=== PATIENT | female | born 1970 | race Caucasian/White ===

== ENCOUNTER 2020-09-24 07:30 | Outpatient (REF) | payer OTHER, SELFPAY ==
--- NOTE | ~2020-09-24 | MM_ITS ---
EXAMINATION: MM SCREENING DIGITAL BREAST TOMOSYNTHESIS, BILATERAL CLINICAL INFORMATION: Screening. Asymptomatic. The lifetime risk of breast cancer based on the Tyrer-Cuzick Model is 5%. COMPARISON: Mammography: 12/22/2018, 07/06/2017, 05/06/2016 TECHNIQUE: Digital breast tomosynthesis is performed in both the craniocaudal and mediolateral oblique views along with computer-aided detection (CAD). Synthesized 2D images are generated from the tomosynthesis. FINDINGS: There are scattered areas of fibroglandular density (ACR BI-RADS breast composition Category b). There are no significant masses, abnormal calcifications, or other abnormalities. Parenchymal pattern is similar to prior studies. No developing density. The axilla and skin contours are unremarkable. MM/MM tomosynthesis screening BI IMPRESSION: No significant changes from prior studies. No mammographic evidence of malignancy. ASSESSMENT: BI-RADS 1: Negative RECOMMENDATION: Routine annual mammography screening. This patient's information was entered into a reminder system with a target due date for their next mammogram.
== END 2020-09-24 07:31 | disposition home or self-care (01) ==
LOC: HO.MAMMO 07:30
PROVIDERS: PCP Nurse Practitioner; Visit Provider Nurse Practitioner
DX: Z12.31 Encounter for screening mammogram for malignant neoplasm of breast (principal)
CPT/HCPCS: 77063; 77067

== ENCOUNTER 2021-09-29 07:16 | Outpatient (REF) | payer OTHER, SELFPAY ==
--- NOTE | ~2021-09-29 | MM_ITS ---
EXAMINATION: MM SCREENING DIGITAL BREAST TOMOSYNTHESIS, BILATERAL CLINICAL INFORMATION: Screening. Asymptomatic. The lifetime risk of breast cancer based on the Tyrer-Cuzick Model is 5%. COMPARISON: Mammography: 09/24/2020, 12/22/2018, 07/06/2017 TECHNIQUE: Digital breast tomosynthesis is performed in both the craniocaudal and mediolateral oblique views along with computer-aided detection (CAD). Synthesized 2D images are generated from the tomosynthesis. FINDINGS: There are scattered areas of fibroglandular density (ACR BI-RADS breast composition Category b). There are no significant masses, abnormal calcifications, or other abnormalities. Small low axillary tail nodes are stable. The skin contours are smooth. MM/MM tomosynthesis screening BI IMPRESSION: No mammographic evidence of malignancy. ASSESSMENT: BI-RADS 2: Benign RECOMMENDATION: Routine annual mammography screening. This patient's information was entered into a reminder system with a target due date for their next mammogram.
== END 2021-09-29 07:17 | disposition home or self-care (01) ==
LOC: HO.MAMMO 07:16
PROVIDERS: PCP Nurse Practitioner; Visit Provider Nurse Practitioner
DX: Z12.31 Encounter for screening mammogram for malignant neoplasm of breast (principal)
CPT/HCPCS: 77063; 77067

== ENCOUNTER 2022-10-01 07:17 | Outpatient (REF) | payer MEDICAID, SELFPAY ==
--- NOTE | ~2022-10-01 | MM_ITS ---
EXAMINATION: MM SCREENING DIGITAL BREAST TOMOSYNTHESIS, BILATERAL CLINICAL INFORMATION: Screening. Asymptomatic. The lifetime risk of breast cancer based on the Tyrer-Cuzick Model is 5%. COMPARISON: Mammography: 09/29/2021, 09/24/2020, 12/22/2018, 07/06/2017 TECHNIQUE: Digital breast tomosynthesis is performed in both the craniocaudal and mediolateral oblique views along with computer-aided detection (CAD). Synthesized 2D images are generated from the tomosynthesis. FINDINGS: There are scattered areas of fibroglandular density (ACR BI-RADS breast composition Category b). There are no significant masses, abnormal calcifications, or other abnormalities. Incidental intramammary nodes outer bilateral breasts. No developing density or architectural abnormality. The axilla and skin contours are unremarkable. MM/MM tomosynthesis screening BI IMPRESSION: No mammographic evidence of malignancy. ASSESSMENT: BI-RADS 2: Benign RECOMMENDATION: Routine annual mammography screening. This patient's information was entered into a reminder system with a target due date for their next mammogram.
== END 2022-10-01 07:18 | disposition home or self-care (01) ==
LOC: HO.MAMMO 07:17
PROVIDERS: Visit Provider Nurse Practitioner
DX: Z12.31 Encounter for screening mammogram for malignant neoplasm of breast (principal)
CPT/HCPCS: 77063; 77067

== ENCOUNTER 2023-10-07 07:35 | Outpatient (REF) | payer MEDICAID, SELFPAY | END 2023-10-07 07:36 | disposition home or self-care (01) | LOC: HO.MAMMO 07:35 | PROVIDERS: PCP Nurse Practitioner; Visit Provider Nurse Practitioner | DX: Z12.31 Encounter for screening mammogram for malignant neoplasm of breast (principal) | CPT/HCPCS: 77063; 77067 ==

== ENCOUNTER → 2023-10-07 07:45 | Outpatient (BNV) | payer MEDICAID, SELFPAY | PROVIDERS: PCP Nurse Practitioner; Visit Provider Radiology Diagnostic Radiology | DX: Z12.31 Encounter for screening mammogram for malignant neoplasm of breast (principal) | CPT/HCPCS: 77063; 77067 ==

== ENCOUNTER 2025-01-03 07:30 | Outpatient (REF) | payer MEDICAID, SELFPAY ==
--- OUTSIDE RECORDS SUMMARY | 2025-01-03 07:33 | XMS_ITS | Clinical Summary ---
Author Organization [facility] Address [address] [place] [address] Care Team Providers Care Cement Mixer Name Role Phone Eliza Johnleandro AMBREEN Primary Care Provider [phone] Source Comments PLEASE NOTE, if this patient is a minor, it may be UNLAWFUL to discuss sensitive information that is contained in these records (such as FAMILY PLANNING, MENTAL HEALTH or SUBSTANCE ABUSE) with the minor patient's parent or other person without the patient's specific authorization.[facility] Allergies Active Allergy Reactions Criticality Noted Date Comments Fruit Flavor SOB 10/29/2015 All fruits/fruit juice. Since age 16, throat swells. Medications blood-glucose meter monitoring kitIndications: Type 2 diabetes mellitus without complication, without long-term current use of insulin ([facility]) Check FBS once daily. Freestyle Lite E11.65 1 Each 05/14/19 21 Active alcohol swabsIndication s:Type 2 diabetes mellitus with hyperglycemia, without long-term current use of insulin ([facility]) Check FBS daily E11.65. 100 Each 11 01/06/20 22 Active pen needle, diabetic 30 gauge x 5/16 ndleIndications :Type 2 diabetes mellitus with hyperglycemia, without long-term current use of insulin ([facility]) Inject with Lantus once daily E11.65 100 Each 11 01/06/20 22 Active lancetsIndicati ons:Type 2 diabetes mellitus with hyperglycemia, without long-term current use of insulin ([facility]) Check FBS once daily. Freestyle Lancets E11.65 100 Each 01/06/20 22 Active blood sugar diagnostic (FREESTYLE PRECISION BERNARD STRIPS) stripsIndicatio ns:Type 2 diabetes mellitus with hyperglycemia, without long-term current use of insulin (CMS & HHS-HCC) 1 Each once daily 100 Each 1 02/06/20 22 Active blood-glucose meter (FREESTYLE PRECISION BERNARD METER) monitoring kitIndications: Type 2 diabetes mellitus with hyperglycemia, without long-term current use of insulin ([facility]) as needed for blood glucose monitoring 1 Each 02/06/20 22 Active FREESTYLE YASMANI 2 SENSOR kitIndications: Type 2 diabetes mellitus with hyperglycemia, without long-term current use of insulin ([facility]) USE DIRECTED DAILY 1 Kit 1 05/29/19 23 Active diclofenac sodium (VOLTAREN) 1 % gelIndications: Plantar fasciitis of right foot Apply topically 2 (two) times daily as needed for pain 100 g 2 03/24/20 23 Active ibuprofen 600 mg tabletIndicatio ns:Chronic pain of right knee,Numbness and tingling of right lower extremity Take 600 mg by mouth 4 (four) times daily as needed Active flash glucose scanning reader (FREESTYLE YASMANI 2 READER) miscIndications :Type 2 diabetes mellitus without complication, without long-term current use of insulin ([facility]) Use for continuous glucose monitoring. 1 Each 03/24/20 23 Active flash glucose sensor (FREESTYLE YASMANI 2 SENSOR) kitIndications: Type 2 diabetes mellitus without complication, without long-term current use of insulin ([facility]) 1 Each by miscellaneous route every 14 (fourteen) days 6 Each 3 03/24/20 23 Active norethindrone, contraceptive, (MICRONOR) 0.35 mg tablet Take 1 Tablet by mouth once daily Beginning June 18, 2023 90 Tablet 3 05/14/19 24 Active progesterone micronized (PROMETRIUM) 100 mg capsuleIndicati ons:Postmenopau hammad bleeding,Hormon e replacement therapy Take 1 Capsule by mouth nightly at bedtime 90 Capsule 1 12/07/19 24 Active blood sugar diagnostic (FREESTYLE LITE STRIPS) stripsIndicatio ns:Type 2 diabetes mellitus with hyperglycemia, without long-term current use of insulin ([facility]) USE TO TEST DAILY 100 Each 11 02/07/20 24 Active estradioL (CLIMARA) 0.05 mg/24 hr patch APPLY 1 PATCH ONCE A WEEK 12 Patch 3 04/21/19 25 Active estradiol-noret hindrone acet (COMBIPATCH) 0.05-0.14 mg/[address] 1 Patch onto the skin 2 times a week 24 Patch 1 05/15/19 25 Active loratadine (CLARITIN) 10 mg tablet Take 1 Tablet by mouth once daily as needed for allergies 90 Tablet 1 05/19/19 25 Active ammonium lactate (LAC-HYDRIN) 12 % lotion APPLY TOPICALLY NEEDED FOR DRY SKIN. 400 g 1 07/04/19 25 Active gabapentin (NEURONTIN) 100 mg capsuleIndicati ons:Numbness and tingling of right leg TAKE 1 CAPSULE BY MOUTH THREE TIMES A DAY 90 Capsule 2 07/07/19 25 Active atorvastatin (LIPITOR) 20 mg tabletIndicatio ns:Dyslipidemia Take 1 Tablet by mouth once daily. 90 Tablet 12/08/19 25 Active cholecalciferol (VITAMIN D-3) 25 mcg (1,000 unit) tabletIndicatio ns:Routine general medical examination at a health care facility Take 1 Tablet by mouth once daily. 90 Tablet 12/08/19 25 Active dulaglutide (TRULICITY) 1.5 mg/0.5 mL pen injectorIndicat ions:Type 2 diabetes mellitus without complication, without long-term current use of insulin ([facility]) Inject 1.5 mg into the skin once a week. 2 mL 2 12/08/19 25 Active metFORMIN (GLUCOPHAGE) 1,000 mg tabletIndicatio ns:Type 2 diabetes mellitus without complication, without long-term current use of insulin ([facility]) Take 1 Tablet by mouth 2 (two) times daily with food. 180 Tablet 1 12/08/19 25 Active levothyroxine 100 mcg tabletIndicatio ns:Analilia's thyroiditis Take 1 Tablet by mouth once daily. 90 Tablet 12/08/19 25 Active levothyroxine (SYNTHROID, LEVOXYL) 100 mcg tabletIndicatio ns:Analilia's thyroiditis Take 100 mcg by mouth once daily 025 Discontin ued(Reord er (E-Cancel Not Sent)) dulaglutide (TRULICITY) 0.75 mg/0.5 mL pen injectorIndicat ions:Type 2 diabetes mellitus without complication, without long-term current use of insulin ([facility]) Inject 0.75 mg into the skin once a week 2 mL 05/22/19 25 025 Discontin ued(Thera py completed /Not needed) cholecalciferol (VITAMIN D-3) 25 mcg (1,000 unit) tabletIndicatio ns:Routine general medical examination at a health care facility TAKE 1 TABLET BY MOUTH EVERY DAY 90 Tablet 07/07/19 25 025 Discontin ued(Reord er (E-Cancel Not Sent)) metFORMIN (GLUCOPHAGE) 1,000 mg tabletIndicatio ns:Type 2 diabetes mellitus without complication, without long-term current use of insulin ([facility]) TAKE 1 TABLET BY MOUTH TWICE A DAY WITH FOOD 180 Tablet 1 07/04/19 25 025 Discontin ued(Reord er (E-Cancel Not Sent)) dulaglutide (TRULICITY) 1.5 mg/0.5 mL pen injectorIndicat ions:Type 2 diabetes mellitus without complication, without long-term current use of insulin ([facility]) Inject 1.5 mg into the skin once a week 2 mL 2 07/04/19 25 025 Discontin ued(Thera py completed /Not needed) atorvastatin (LIPITOR) 20 mg tabletIndicatio ns:Dyslipidemia TAKE 1 TABLET BY MOUTH EVERY DAY 90 Tablet 11/03/19 25 025 Discontin ued(Reord er (E-Cancel Not Sent)) Active Problems Problem Noted Date Diagnosed Date Colon cancer screening 08/31/2024 Overview (08/31/2024): 08/10/24 Cologuard negative due to repeat in 08/11/27 Hypothyroid 05/15/2024 Overview (05/15/2024): 10/18/23 [facility]: Assessment/Plan Analilia's thyroiditis Ms Marlow is a pleasant and healthy 53 year old female with subclinical hypothyroidism. Since starting on thyroid hormone last year she has about nine pounds, otherwise no signs or symptoms of hypothyroidism. TSH level is at the low end of the reference range, will check thyroid function testing and adjust dose as needed. F/u in 1 year Postmenopausal bleeding 12/07/2023 Overview (12/07/2023): Likely 2/2 unopposed estrogen while on HRT. Pt encouraged to resume progestin therapy with Prometrium 100mg nightly Previously noted YODER with Micronor. Osteoarthritis of right knee 05/28/2023 Overview (05/28/2023): 04/28/23 Eval at [facility]. Moderate OA. Pt declines injections or PT. Recommended MEdrol Dose Bryant, ibuprofen/APAP. F/u PRN. 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 Recommends repeat labs and treat thyroiditis pending result, low threshold for starting meds. Menopause 11/05/2021 Obesity (BMI 30.0-34.9) 11/05/2021 Plantar fasciitis of right foot 07/15/2020 Overview (2020): Xray 07/09/20 shows R calcaneal spur and soft tissue swelling Tinea corporis 06/22/2020 Microalbuminuria 05/31/2020 Papanicolaou smear 05/27/2020 Overview (05/27/2020): 05/14/20 Pap smear. NILM, Angelica present. Neg HPV. E/T zone absent. Dyslipidemia 12/19/2019 Type 2 diabetes mellitus wit hout complication, without long-term current use of insulin ([facility]) 02/22/2019 Overview (02/22/2019): scallop raker message 02/23/2019 - 19:08 critical results from [facility] - Glucose 482. New diagnosis Dm II. Will route to PCP for follow up management. Varicose veins of both lower extremities with pa in 05/07/2017 Overview (01/27/2018): Venous U/S 08/05/17 at [facility] SHows no evidence of thrombus. The RLE, there is significant reflux in the mid calf branch of the greater saphenous vein as well as in a lateral calf branch at the area of the patient's pain. LLE- no venous reflux is seen. Dr Linares, [facility] Right ankle pain 12/01/2016 Overview (12/01/2016): 11/26/16 [facility] Xray R ankle shows small superior and inferior calcaneal osteophytes are present, otherwise normal. H/O mammogram 05/25/2016 Overview (06/23/2023): H/o mammogram 05/06/16 at [facility]. 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 This may be related to mahin phase of her menstrual cycle. F/u U/S in 6 weeks recommended . 06/26/16 Pelvic U/s at [facility] shows Tiny subserosal fibroid. Previously visualized cystic lesion not seen If sx's persist consider MRI. 12/24/16 Eval by Zahida Tabor CNM at [facility]. Pap done. F/u u/s ordered, probably will need EMB given her age. , ddx: fibroids, infection, perinmenopause. Discussed OCP, Mirena, Depo, will f/u Prediabetes 10/31/2015 12/19/2019 Screening for tuberculosis 10/29/2015 0 10/29/2015 Screening for breast cancer 10/29/2015 10/29/2015 Tobacco use 10/29/2015 01/27/2018 Encounters Date Type Department Care Team Description 12/27/2024 Results Follow-Up [facility] [address] [place] [address] Angelina Moreno PA-C 12/07/2024 8:00 AM EDT Telemedicine Visit [facility] [address] [place] [address] Angelina Moreno PA-C from Last 3 Months Immunizations Immunization Administration Dates Next Due Flu, Preservative Free 03/24/2023 Moderna COVID-19 (Spikevax), Mrna, Lnp-s, Pf, 50 Mcg/0.5 Ml, 12yr+ 06/23/2023 Moderna COVID-19 Vaccine, re d cap blue label, 12+ Primary Series 04/14/2021,08/13/2020,07/16/2020 PNEUMOCOCCAL POLYSACCHARIDE PPV23 (Pneumovax 23) 12/26/2015 PPD 10/29/2015 TDAP 12/26/2015 ZOSTER VACCINE, RECOMBINANT (SHINGRIX) 3 Family History Medical History Relation Name Comments No Known Problems Brother 1 Cancer Brother 2 Hodgkin's Lymph lisa Depression Daughter Heart Problems Father Diabetes Maternal Grandfather No Known Problems Maternal Grandmother COPD Mother Cancer Mother Skin CA Diabetes Mother Heart Problems Mother Hypertension Mother Kidney disease Mother Other (See Comments) Mother Sleep A pnea Ovarian cancer Sister 54 Stomach Cancer Sister Lupus Son Relation Name Status Comments Brother 1 Alive Brother 2 Daughter Alive Father Maternal Grandfather Maternal Grandmother Alive Mother Alive Paternal Grandfather Paternal Grandmother Sister Alive Son Alive Social History Tobacco Use Types Packs/Day Years Used Date Smoking Tobacco: Former Cigarettes Smokeless Tobacco: Never Comments:Started smoking age 15, quit 37 years ago. Alcohol Use Standard Drinks/Week Comments Not Currently 0 (1 standard drink = 0.6 oz pur e alcohol) Social Connections Answer Date Recorded Connectedness 0 06/20/2019 Financial Resource Strain Answer Date R ecorded Financial Resource Strain 0 2019 Stress Answer Date Recorded Stress 0 06/20/2019 Physical Activity Answer Date Recorded Physical Activity 0 06/20/2019 Food Insecurity Answer Date Recorded Food 0 06/20/2019 Transportation Needs Answer Date Record ed Transportation 0 06/20/2019 Housing Stability Answer Date Recorded Housing 0 06/20/2019 Safety and Environment Answer Date Zachary rded Safety 0 06/20/2019 Utilities Answer Date Recorded Utilities 0 06/20/2019 Employment Answer Date Recorded Stress 0 06/20/2019 Comments No Sex and Gender Information Value Date Recorded Sex Assigned at Female 02/03/2017 12:38 PM PDT Legal Sex Female 10:20 AM PDT Gender Identity Female 02/03/2017 12:38 PM PDT Sexual Orientation Straight 02/03/2017 12 :38 PM PDT Last Filed Vital Signs Vital Sign Reading Time Taken Comments Blood Pressure 122/70 05/19/2024 10:29 AM EST Pulse 96 05/19/2024 10:29 AM EST Temperature 36.7 C (98 F) 05/19/2024 10:29 AM EST Respiratory Rate 18 05/19/2024 10:29 AM EST Oxygen Saturation 97% 05/12/2024 9:30 AM EST Inhaled Oxygen Concentration - - Weight 78.2 kg (172 lb 6.4 oz) 05/19/2024 10:29 AM EST Height 160 cm (5' 3 ) 05/19/2024 10:29 AM EST Body Mass Index 30.54 05/19/2024 10:29 AM EST Plan of Treatment Health Maintenance Due Date Last Done Comments Anxiety Screening 1968 Imm-Hepatitis B (1 of 3 - 19 + 3-dose series) 08/02/1987 CT Colonography 2013 Colonoscopy 2013 Flexible Sigmoidoscopy 2013 Imm-Pneumococcal 50+ (2 of 2 - PCV) 12/25/2016 12/26/2015 HPV Screening 12/24/2021 12/24/2016 Imm-Zoster, Recombinant (2 of 2) 07/20/2022 05/25/19 23 Dental Examination 09/19/2022 09/17/2021 Breast Cancer Screening (Mammogram) 10/02/2023 10/01/2022, 10/01/2022, 12/22/2018 Retinopathy Screening 10/27/2024 10/28/2023 , 08/04/2022, 02/05/2022 (Managed by Outside Provider) [id number] ( season) 2024 06/23/2023, 04/14/2021, 08/13/2020, Additional history exists Imm-Influenza (#1) 2024 03/24/2023 Hemoglobin A1c 03/27/2025 12/26/2024, 04/21, 06/23/2023, Additional history exists Annual Wellness (Adult): Indicated (All Coverage) 05/19/2025 05/19/2024, 12/07/2023, 03/24/2023, Additional history exists Diabetes Foot Exam 05/19/2025 05/19/2024, 1 05/25/2022, 03/24/2021 Hypertension Screening (#1) 05/19/2025 Lipid Screening 05/19/2025 05/19/2024, 09/2022, 12/03/2021, Additional history exists Tobacco Screening 05/19/2025 05/19/2024, , 10/29/2015 FIT/gFOBT 08/10/2025 08/10/2024, 07/12/2020 Imm-DTaP/Tdap/Td (2 - Td or Tdap) 12/25/2025 016 Serum Creatinine 12/26/2025 12/26/2024, , 09/03/2023, Additional history exists TSH Monitoring 12/26/2025 12/26/2024, 04/21, 03/24/2023, Additional history exists Urine Albumin Creatinine Rat io Screening 12/26/2025 12/26/2024, 05/19/2024, 03/24/2023, Additional history exists Pap Smear 12/06/2026 12/07/2023, 04/20, 12/24/2016 Colorectal Cancer Screening 08/11/2027 Fecal DNA 08/11/2027 08/10/2024 Cervical Cancer Screening 12/06/2028 Pap + HPV 12/06/2028 12/07/2023, 12/24/2016 Alcohol and Drug Screen Completed 05/19/19 25, 06/23/2023, 05/15/2022, Additional history exists Depression Annual Screen Completed 025, 01/27/2018, 11/25/2016, Additional history exists HIV Screening Completed 05/19/2024, 08/2018, 11/26/2016 Hepatitis C Screening Completed 05/19/2024, 021 Cervical Ablation/Cold-Knife Conization Discontinued Cervical Cryotherapy Discontinued Colposcopy Discontinued Endometrial Biopsy Discontinued Excision/Leep Discontinued HPV Genotyping Discontinued Vaginal Pap Discontinued Vulvoscopy Discontinued Procedures Procedure Name Priority Date/Time Associated Diagnosis Comments REFERRAL SCANNED DOCUMENT 12/28/2024 3:00 AM EDT VITAMIN D, 1,25-DIHYDROXY Routine 12/26/2024 10:08 AM EDT Routine general medical examination at a health care facility COMPREHENSIVE METABOLIC PANEL Routine 12/26/2024 10:08 AM EDT Dyslipidemia Type 2 diabetes mellitus without complication, without long-term current use of insulin ([facility]) TSH W/RFLX FREE T4 Routine 12/26/2024 10 :08 AM EDT Analilia's thyroiditis MICROALBUMIN/CREATINI NE RATIO, URINE, RANDOM Routine 12/26/2024 10:08 AM EDT Type 2 diabetes mellitus without complication, without long-term current use of insulin ([facility]) HGBA1C W/MPG Routine 12/26/2024 10:08 AM EDT Type 2 diabetes mellitus without complication, without long-term current use of insulin ([facility]) COLOGUARD Routine 08/10/2024 3:00 AM EDT Routine adult health maintenance HIV 1/2 AG & AB W/RFLX (4TH GEN) Routine 05/19/2024 10:58 AM EST Routine adult health maintenance HEPATITIS C AB W/RFLX HCV RNA, QT, RT PCR Routine 05/19/2024 10:58 AM EST Routine adult health maintenance LIPID PANEL Routine 05/19/2024 10:58 AM EST Routine adult health maintenance THINPREP IMAGING PAP, HPV MRNA E6/E7 RFLEX HPV 16,18/45 CT/NG Routine 12/07/2023 4:08 PM EDT Encounter for Papanicolaou smear of vagina as part of routine gynecological examination Encounter for screening for human papillomavirus (HPV) EYE EXAM 10/28/2023 3:00 AM EDT HISTORIC MAMMOGRAM 10/01/2022 3: 00 AM EDT PAP SMEAR W/HPV, ABSTRACTED Routine 12/24/2016 9:33 AM EDT from Last 3 Months or Most Recently Relevant to Health Maintenance Results * REFERRAL SCANNED DOCUMENT (12/28/2024 3:00 AM EDT) 12/28/2024 3:00 AM EDT [facility] Provider Default SCAN REFERRAL Final Resu lt * (ABNORMAL) HGBA1C W/MPG Routine (12/26/2024 10:08 AM EDT) HEMOGLOBIN A1C 8.9(H) <5.7 % 12/27/2024 5:00 AM EDT [employer] [employer] MEAN PLASMA GLUCOSE 240 mg/dL (calc) 12/27/2024 5:00 AM EDT [facility] Blood Blood / Unknown 12/26/2024 1 0:08 AM EDT 12/27/2024 3:44 AM EDT Narrative [facility] - 12/27/2024 5:14 AM EDT FASTING:YES For someone without known diabetes, a hemoglobin A1c value of 6.5% or greater indicates that they may have diabetes and this should be confirmed with a follow-up test. . For someone with known diabetes, a value <7% indicates that their diabetes is well controlled and a value greater than or equal to 7% indicates suboptimal control. A1c targets should be individualized based on duration of diabetes, age, comorbid conditions, and other considerations. . Currently, no consensus exists regarding use of hemoglobin A1c for diagnosis of diabetes for children. . Angelina Moreno PA-C LAB - BLOOD DRAW Final Resu lt [facility] [address] [place] [id number], [place] [facility] [address] [place] [address] * TSH W/RFLX FREE T4 Routine (12/26/2024 10:08 AM EDT) TSH W/REFLEX TO FT4 3.44 0.40 - 4.50 mIU/L 12/27/2024 7:01 AM EDT [employer] Blood Blood / Unknown 12/26/2024 1 0:08 AM EDT 12/27/2024 5:30 AM EDT [employer] - 12/27/2024 7:07 AM EDT FASTING:YES Angelina Moreno PA-C LAB - BLOOD DRAW Final Resu lt [facility] [address] [place] [id number], [employer] [address] [address] * VITAMIN D, 1,25-DIHYDROXY Routine (12/26/2024 10:08 AM EDT) VITAMIN D, 1, 25 (OH)2, TOTAL 34 18 - 72 pg/mL 12/30/2024 1:22 PM EDT [facility] [place] VITAMIN D3, 1, 25 (OH)2 34 pg/mL 12/30/2024 1:22 PM EDT [facility] [place] VITAMIN D2, 1, 25 (OH)2 <8 pg/mL 12/30/2024 1:22 PM EDT [facility] Blood Blood / Unknown 12/26/2024 1 0:08 AM EDT 12/28/2024 4:27 AM EDT [facility] - 12/30/2024 1:23 PM EDT FASTING:YES . Vitamin D3, 1,25(OH)2 indicates both endogenous production and supplementation. Vitamin D2, 1,25(OH)2 is an indicator of exogenous sources, such as diet or supplementation. Interpretation and therapy are based on measurement of Vitamin D,1,25(OH)2, Total. . . This test was developed and its analytical performance characteristics have been determined by [employer], [place]. It has not been cleared or approved by the FDA. This assay has been validated pursuant to the CLIA regulations and is used for clinical purposes. . us Angelina Moreno PA-C LAB - BLOOD DRAW Final Resu lt Performing Organization Address City/[facility]/ZIP Co de Phone Number [facility] [place] [phone] [place], [place] , [employer]/[facility] [address] [place], [place] * MICROALBUMIN/CREATININE RATIO, URINE, RANDOM Urine Routine (12/26/2024 10:08 AM EDT) CREATININE, RANDOM URINE 77 20 - 275 mg/dL 12/27/2024 5:56 PM EDT [facility] MICROALBUMIN 0.3 mg/dL 12/27/2024 5:56 PM EDT [facility] MICROALBUMIN/CRE ATININE RATIO, RANDOM URINE 4 <30 mg/g creat 12/27/2024 5:56 PM EDT [employer] Urine Urine specimen / Unknown 12/26/2024 10:08 AM EDT 12/27/2024 5:45 AM EDT Narrative [employer] - 12/27/2024 6:10 PM EDT FASTING:YES Reference Range Not established . The ADA defines abnormalities in albumin excretion as follows: . Albuminuria Category Result (mg/g creatinine) . Normal to Mildly increased <30 Moderately increased 30-299 Severely increased > OR = 300 . The ADA recommends that at least two of three specimens collected within a 3-6 month period be abnormal before considering a patient to be within a diagnostic category. us Angelina Moreno PA-C LAB URINE AMBULATORY Final Result Performing Organization Address City/[facility]/ZIP Co de Phone Number [employer] [address] [address], [employer] [address] [address] * (ABNORMAL) COMPREHENSIVE METABOLIC PANEL Routine (12/26/2024 10:08 AM EDT) GLUCOSE 158(H) 65 - 99 mg/dL 12/27/2024 7:41 AM [employer] [facility] UREA NITROGEN (BUN) 15 7 - 25 mg/dL 12/27/2024 7:41 AM [employer] [place] [employer] CREATININE (blood) 0.68 0.50 - 1.03 mg/dL 12/27/2024 7:41 AM [employer] [facility] EGFR 102 > OR = 60 mL/min/1. 73m2 12/27/2024 7:41 AM [employer] [facility] BUN/CREATININE RATIO SEE NOTE: 6 - 22 (calc) 12/27/2024 7:41 AM [employer] [facility] SODIUM 138 135 - 146 mmol/L 12/27/2024 7:41 AM [employer] [facility] POTASSIUM 4.4 3.5 - 5.3 mmol/L 12/27/2024 7:41 AM [employer] [facility] CHLORIDE 105 98 - 110 mmol/L 12/27/2024 7:41 AM [employer] [facility] CARBON DIOXIDE 24 20 - 32 mmol/L 12/27/2024 7:41 AM [employer] [facility] CALCIUM 10.1 8.6 - 10.4 mg/dL 12/27/2024 7:41 AM [employer] [facility] PROTEIN, TOTAL 7.9 6.1 - 8.1 g/dL 12/27/2024 7:41 AM [employer] [facility] [facility] ALBUMIN 4.7 3.6 - 5.1 g/dL 12/27/2024 7:41 AM [employer] [facility] GLOBULIN 3.2 1.9 - 3.7 g/dL (calc) 12/27/2024 7:41 AM [employer] [facility] ALBUMIN/GLOBULI N RATIO 1.5 1.0 - 2.5 (calc) 12/27/2024 7:41 AM [employer] [facility] BILIRUBIN, TOTAL 0.4 0.2 - 1.2 mg/dL 12/27/2024 7:41 AM [employer] [facility] ALKALINE PHOSPHATASE 58 37 - 153 U/L 12/27/2024 7:41 AM [employer] [facility] AST 13 10 - 35 U/L 12/27/2024 7:41 AM [employer] [facility] ALT 18 6 - 29 U/L 12/27/2024 7:41 AM EDT [facility] Blood Blood / Unknown 12/26/2024 1 0:08 AM EDT 12/27/2024 5:30 AM EDT Narrative [facility] - 12/27/2024 7:52 AM EDT FASTING:YES . Fasting reference interval . For someone without known diabetes, a glucose value >125 mg/dL indicates that they may have diabetes and this should be confirmed with a follow-up test. . Not Reported: BUN and Creatinine are within reference range. . Angelina Moreno PA-C LAB - BLOOD DRAW Final Resu lt Performing Organization Address City/[facility]/ZIP Co de Phone Number [facility] [address] [address], [facility] [address] [address] * COLOGUARD (08/10/2024 3:00 AM EDT) Stool Stool specimen / Unknown 08/10/2024 3:00 AM EDT Diann Kay NP LAB BODY FLUIDS AND STOOLS AMBU LATSHERRI Final Result Performing Organization Address City/[facility]/ZIP Co de Phone Number [employer] [address] [place] [address], [address] [facility] [id number] [place] [address], * HEPATITIS C AB W/RFLX HCV RNA, QT, RT PCR (05/19/2024 10:58 AM EST) HEPATITIS C ANTIBODY NON-REACT YAKELIN NON-REACT YAKELIN [facility] Comment: HCV antibody was non-reactive. There is no laboratory evidence of HCV infection. In most cases, no further action is required. However, if recent HCV exposure is suspected, a test for HCV RNA (test code 68230) is suggested. For additional information please refer to http://education.[employer]ensius/faq/SDX23z1 (This link is being provided for informational/ educational purposes only.) Blood Blood / Unknown 05/19/2024 1 0:58 AM EST 05/19/2024 10:59 AM EST Narrative [facility] - 05/20/2024 6:22 PM EST FASTING:NO [facility] LAB - BLOOD DRAW Edited Result - Final Performing Organization Address [facility] Co de Phone Number [facility] [address] [address], [employer] [address] [address] * HIV 1/2 AG & AB W/RFLX (4TH GEN) (05/19/2024 10:58 AM EST) [facility] HIV AG/AB, 4TH GEN NON-REAC TIVE NON-REAC TIVE [facility] Comment: HIV-1 antigen and HIV-1/HIV-2 antibodies were not detected. There is no laboratory evidence of HIV infection. PLEASE NOTE: This information has been disclosed to you from records whose confidentiality may be protected by state law. If your state requires such protection, then the state law prohibits you from making any further disclosure of the information without the specific written consent of the person to whom it pertains, or as otherwise permitted by law. A general authorization for the release of medical or other information is NOT sufficient for this purpose. For additional information please refer to http://education.GetGoing.Digital Guardian/faq/FKF568 (This link is being provided for informational/ educational purposes only.) The performance of this assay has not been clinically validated in patients less than 2 years old. Blood Blood / Unknown 05/19/2024 1 0:58 AM EST 05/19/2024 10:59 AM EST Narrative [facility] - 05/20/2024 6:22 PM EST FASTING:NO Diann Kay DRY PLACER MACHINE OPERATOR LAB - BLOOD DRAW Final Result Performing Organization Address [facility]/ZIP Co de Phone Number [facility] [address] [address], [employer] [address] [address] * (ABNORMAL) LIPID PANEL (05/19/2024 10:58 AM EST) CHOLESTEROL, TOTAL 141 <200 mg/dL [facility] HDL CHOLESTEROL 50 > OR = 50 mg/dL [facility] TRIGLYCERIDES 198(H) <150 mg/dL [facility] LDL-CHOLESTEROL 64 99 mg/dL (calc) [facility] Comment: Reference range: <100 Desirable range <100 mg/dL for primary prevention; <70 mg/dL for patients with CHD or diabetic patients with > or = 2 CHD risk factors. LDL-C is now calculated using the Yair calculation, which is a validated novel method providing better accuracy than the Friedewald equation in the estimation of LDL-C. Barak SS et al. RIANNA. 2013;310(27): 9692-1444 (http://education.INTTRA/faq/ZIU505) CHOL/HDLC RATIO 2.8 <5.0 (calc) [facility] NON-HDL CHOLESTEROL 91 <130 mg/dL (calc) [facility] Comment: For patients with diabetes plus 1 major ASCVD risk factor, treating to a non-HDL-C goal of <100 mg/dL (LDL-C of <70 mg/dL) is considered a therapeutic option. Blood Blood / Unknown 05/19/2024 1 0:58 AM EST 05/19/2024 10:59 AM EST Narrative [facility] - 05/20/2024 6:22 PM EST FASTING:NO Diann Kay NP LAB - BLOOD DRAW Final Result [employer] [address] [address], [facility] [address] [address] * [facility] PAP, HPV MRNA E6/E7 RFLEX HPV 16,18/45 CT/NG (12/07/2023 4:08 PM EDT) CHLAMYDIA TRACHOMATIS RNA, TMA NOT DETECTED NOT DETECTED [facility] NEISSERIA GONORRHOEAE RNA, TMA NOT DETECTED NOT DETECTED [facility] COMMENT [facility] CLINICAL INFORMATION See Note [facility] Comment:None given LMP See Note [facility] Comment:06/23/2017 PREV. PAP See Note [facility] Comment:UNK PREV. BX See Note [facility] Comment:UNK SOURCE See Note [facility] Comment:Cervix, Endocervix STATEMENT OF ADEQUACY See Note [facility] Comment: Satisfactory for evaluation. Endocervical/transformation zone component absent. INTERPRETATION/RESU LT See Note [facility] Comment: Cytology Results: Negative for intraepithelial lesion or malignancy. COMMENT See Note [facility] Comment: This Pap test has been evaluated with computer assisted technology. LIGHT RAIL VEHICLE OPERATOR See Note [facility] [facility] Comment: EXJ, CT(ASCP) CT Screening Location: [place] [address] COMMENT [facility] HPV MRNA E6/E7 Not Detected Not Detected [facility] Comment: Methodology: Shampooer-Mediated Amplification This assay detects E6/E7 viral messenger RNA (mRNA) from 14 high-risk HPV types (16,18,31,33,35,39,45,51,52,56,58,59,66,68). Cervical sources are required for HPV testing. If a vaginal source from a patient who has had a total hysterectomy with removal of cervix was submitted, please contact the testing laboratory for alternative testing options. For additional information, please refer to http://education.Telensius/faq/UZT703x5 (This link if provided for information/ educational purposes only.) Swab Cervix uteri structure / Unknown 12/07/2023 4:08 PM EDT 12/08/2023 7:59 AM EDT Narrative [facility] - 12/10/2023 9:55 AM EDT SPLIT 12/07/2023 FROM [id number] EXPLANATORY NOTE: The Pap is a screening test for cervical cancer. It is not a diagnostic test and is subject to false negative and false positive results. It is most reliable when a satisfactory sample, regularly obtained, is submitted with relevant clinical findings and history, and when the Pap result is evaluated along with historic and current clinical information. The analytical performance characteristics of this assay, when used to test SurePath(TM) specimens have been determined by [facility]. The modifications have not been cleared or approved by the FDA. This assay has been validated pursuant to the CLIA regulations and is used for clinical purposes. For additional information, please refer to https://education.Telensius/faq/DWE881 (This link is being provided for information/ educational purposes only.) Heron Candelaria MD LAB - PATHOLOGY AND CYTOLOGY AMB ULATORY Final Result [facility] [address] [address], [facility] [address] [address] * EYE EXAM (10/28/2023 3:00 AM EDT) 10/28/2023 3:00 AM EDT Lesa BRICEÑO OTHER Edited Re sult - Final * HISTORIC MAMMOGRAM (10/01/2022 3:00 AM EDT) 10/01/2022 3:00 AM EDT Lesa BRICEÑO IMG MAMMO Edited Re sult - Final * PAP SMEAR W/HPV, ABSTRACTED (12/24/2016 9:33 AM EDT) PAP SMEAR INTERPRETATION NORMAL NORMAL [facility] HPV (HUMAN PAPILLOMA) NEGATIVE NEGATIVE [facility] HPV TYPE 16 NEGATIVE NEGATIVE [facility] HPV TYPE 18 NEGATIVE NEGATIVE [facility] Cytologic material (specimen) 12/24/2016 9:33 AM EDT [facility] - 02/21/2019 4:16 PM EST NEGATIVE for Intraepithelial Lesion or Malignancy. Human Papilloma Virus, High-Risk- NEGATIVE.Chlamydia - Negative N.gonorrhea- Negative. [facility] LAB - PATHOLOGY AND CYTOLOGY AMB ULATORY Final Result Performing Organization Address City/[facility]/ZIP Co de Phone Number [facility] [address] [place] [address], from Last 3 Months or Most Recently Relevant to Health Maintenance Insurance [id number] Care Teams Cement Mixer Relationship Specialty Start Date End Date Diann Kay NP [facility] [place] [address] PCP - General Family Medicine, DRY PLACER MACHINE OPERATOR 02/21/24
--- OUTSIDE RECORDS SUMMARY | 2025-01-03 07:33 | XMS_ITS | Encounter Summary ---
Author Organization [employer] Address [address] [facility] [address] [place] [address] Care Team Providers Care Personnel Director Name Role Phone Unavailable Primary Care Provider Unavailabl e Encounter Details Date Type Department Care Team (Latest Contact Info) Description 07/15/2018 Abstract [facility] CONVERSIONS Dental, Provider, DDS Social History Tobacco Use Types Packs/Day Years Used Date Smoking Tobacco: Never Assessed Comments Unknown Sex and Gender Information Value Date Recorded Sex Assigned at Female 02/16/2022 10:32 AM EDT Legal Sex Female 10:32 AM EDT Gender Identity Not on file Sexual Orientation Not on file documented as of this encounter Plan of Treatment Not on file documented as of this encounter Visit Diagnoses Not on filedocumented in this encounter
--- OUTSIDE RECORDS SUMMARY | 2025-01-03 07:33 | XMS_ITS | Clinical Summary ---
Author Organization [employer] Address [address] [facility] [address] [place] [address] Care Team Providers Care Media Services Director Name Role Phone Unavailable Primary Care Provider Unavailabl e Encounters Date Type Department Care Team Description 12/20/2024 Population Health Risk Score [facility] ([facility]) Department [address] [facility] [address] [place] [id number] Provider, Population Health Generic from Last 3 Months Social History Tobacco Use Types Packs/Day Years Used Date Smoking Tobacco: Never Assessed Comments Unknown Sex and Gender Information Value Date Recorded Sex Assigned at Female 02/16/2022 10:32 AM EDT Legal Sex Female 10:32 AM EDT Gender Identity Not on file Sexual Orientation Not on file Plan of Treatment Health Maintenance Due Date Last Done Comments CT Colonography 1968 Colonoscopy 1968 Colorectal Cancer Screening 1968 Depression Screening 1968 FIT DNA/Cologuard 1968 FIT 1968 FOBT 1968 Sigmoidoscopy 1968 Disability Screening 1968 Alcohol/Substance Use Screening 1980 Tobacco Screening 1980 Hepatitis C Screening 1986 Hepatitis B Vaccines (1 of 3 - 19+ 3-dose series) 08/02/1987 Pap Smear 1989 Cervical Cancer Screening 1998 HPV/Cotest 1998 Mammogram 2008 Pneumococcal Vaccine: 50+ Years (2 of 2 - PCV) 2018 12/26/2015 Zoster Vaccines (2 of 2) 07/20/2022 05/25/2022 COVID-19 Vaccine (5 - 2024- season) 2024 06/23/2023, 04/14/2021, 08/13/2020, Additional history exists Influenza Vaccine (#1) 2024 03/24/2023 DTaP/Tdap/Td Vaccines (2 - Td or Tdap) 12/25/2025 12/26/2015 RSV Patients and Patients Aged 60 years or older (1 - 1-dose 75+ series) 08/02/2043 HIV Screening Completed 05/19/2024, 05/19/2024 HIB Vaccines Aged Out No longer eligi ble based on patient's age to complete this topic HPV Vaccines Aged Out No longer eligi ble based on patient's age to complete this topic Hepatitis A Vaccines Aged Out No long er eligible based on patient's age to complete this topic IPV Vaccines Aged Out No longer eligi ble based on patient's age to complete this topic Meningococcal B Vaccine Aged Out No l onger eligible based on patient's age to complete this topic Meningococcal Vaccine Aged Out No pb christy eligible based on patient's age to complete this topic RSV under 20 months Aged Out No longe r eligible based on patient's age to complete this topic Rotavirus Vaccines Aged Out No longer eligible based on patient's age to complete this topic
== END 2025-01-03 07:31 | disposition home or self-care (01) ==
LOC: HO.MAMMO 07:30
PROVIDERS: Visit Provider Nurse Practitioner
DX: Z12.31 Encounter for screening mammogram for malignant neoplasm of breast (principal)
CPT/HCPCS: 77063; 77067

== ENCOUNTER → 2025-01-03 07:45 | Outpatient (BNV) | payer MEDICAID, SELFPAY | PROVIDERS: Visit Provider Internal Medicine | DX: Z12.31 Encounter for screening mammogram for malignant neoplasm of breast (principal) | CPT/HCPCS: 77063; 77067 ==